=== PATIENT | male | born 1965 | race Caucasian/White ===

== ENCOUNTER 2020-03-01 07:27 | Outpatient (REF) | payer OTHER, SELFPAY ==
[2020-03-01 11:21] LABS: MANUAL DIFF FLAG NO
[2020-03-01 11:30] LABS: Basophils Percent Auto 0.3 % (0-2); Eosinophils Absolute Auto 0.2 X10*3/uL (0.0-0.4); Hematocrit 44.4 % (42-52); Imm Gran Abs Auto 0.02 X10*3/uL (0.00-0.03); Imm Gran Pct Auto 0.3 % (0.0-0.4); Lymphocytes Absolute Auto 2.2 X10*3/uL (1.2-4.9); Lymphocytes Percent Auto 27.8 % (20-40); Mean Corpuscular HGB Conc 31.5 g/dl (31.0-36.0); Mean Corpuscular Hemoglobin 28.3 pg (27.0-33.0); Mean Corpuscular Volume 89.9 fL (80-98); Mean Platelet Volume 10.2 fL (9.4-12.4); Monocytes Absolute Auto 0.6 X10*3/uL (0.1-1.2); Monocytes Percent Auto 8.1 % (2-11); Neutrophils Absolute Auto 4.8 X10*3/uL (2.0-8.3); Neutrophils Percent Auto 61.5 % (45-73); Platelet Count 220 X10*3/uL (160-400); Red Blood Count 4.94 X10*6/uL (4.60-5.80); Red Cell Distribution Width 13.4 % (11.0-16.0); White Blood Count 7.8 X10*3/uL (4.8-10.8)
[2020-03-01 11:33] LABS: Glucose Urine UA NEG (NEG); Leukocyte Esterase Urine 2+ (NEG); Nitrite Urine NEG (NEG); PH 6.5 (5.0-8.0); Urine Blood 2+ (NEG); Urine Ketones NEG (NEG); Urine Protein TRACE MG/DL (NEG-TRACE)
[2020-03-01 11:34] LABS: Appearance Urine CLOUDY; Color Urine YELLOW
[2020-03-01 11:57] LABS: Mucus Urine 1+ /LPF; Renal Epithelial Cells Urine 1+ /LPF; Squamous Epithelial Cell Urine 1+ /LPF; WBC Urine TNTC /HPF (0-4)
[2020-03-01 12:23] LABS: Alanine Aminotransferase 63 U/L (0-40); Albumin Level 4.5 g/dL (3.5-5.0); Alkaline Phosphatase 55 U/L (39-117); Anion Gap 14 (12-20); Aspartate Amino Transferase 33 U/L (5-37); Bilirubin Total 0.8 mg/dL (0.0-1.0); Blood Urea Nitrogen 20 mg/dL (9-16); Calcium 8.6 mg/dL (8.4-10.2); Carbon Dioxide 27 mmol/L (22-29); Chloride 103 mmol/L (96-108); Cholesterol 188 mg/dL; Estimated Glomerular Filt Rate 56; Glucose Fasting 113 mg/dL (60-99); HDL Cholesterol 53 mg/dL; LDL Cholesterol Calculated 116 mg/dl; Potassium 4.9 mmol/l (3.3-5.1); Sodium 139 mmol/L (135-145); Triglycerides 97 mg/dL
[2020-03-01 12:48] LABS: Prostate Specific Antigen 0.81 ng/mL (<0.05-4.0); Thyroid Stimulating Hormone 0.06 uIU/mL (0.32-4.0); Vitamin D 25-OH Total 21.8 ng/mL (>30)
== END 2020-03-01 07:28 | disposition home or self-care (01) ==
LOC: HO.HMGCLDS 07:27
PROVIDERS: PCP Internal Medicine; Visit Provider Internal Medicine
DX: I10 Essential (primary) hypertension (principal); N40.0 Benign prostatic hyperplasia without lower urinary tract symptoms; E03.8 Other specified hypothyroidism; E06.3 Autoimmune thyroiditis
CPT/HCPCS: 36415; 80053; 80061; 81001; 82306; 84153; 84443; 85025

== ENCOUNTER 2022-02-13 06:32 | Outpatient (REF) | payer BC, SELFPAY ==
[2022-02-13 11:22] LABS: MANUAL DIFF FLAG NO
[2022-02-13 11:25] LABS: Basophils Percent Auto 0.4 % (0-2); Eosinophils Absolute Auto 0.2 X10*3/uL (0.0-0.4); Eosinophils Percent Auto 4.3 % (0-4); Hematocrit 42.9 % (42.0-52.0); Hemoglobin 13.6 g/dl (14.0-18.0); Imm Gran Abs Auto 0.04 X10*3/uL (0.00-0.03); Imm Gran Pct Auto 0.7 % (0.0-0.4); Lymphocytes Absolute Auto 2.3 X10*3/uL (1.2-4.9); Lymphocytes Percent Auto 40.2 % (20-40); Mean Corpuscular HGB Conc 31.7 g/dl (31.0-36.0); Mean Corpuscular Hemoglobin 29.7 pg (27.0-33.0); Mean Corpuscular Volume 93.7 fL (80.0-98.0); Mean Platelet Volume 10.7 fL (9.4-12.4); Monocytes Absolute Auto 0.4 X10*3/uL (0.1-1.2); Monocytes Percent Auto 7.3 % (2-11); Neutrophils Absolute Auto 2.7 x10*3/uL (2.0-8.3); Neutrophils Percent Auto 47.1 % (45-73); Platelet Count 184 X10*3/uL (160-400); Red Blood Count 4.58 X10*6/uL (4.60-5.80); Red Cell Distribution Width 14.6 % (11.0-16.0); White Blood Count 5.6 X10*3/uL (4.8-10.8)
[2022-02-13 11:32] LABS: Appearance Urine Clear; Color Urine Yellow; Glucose Urine UA Negative (Negative); Leukocyte Esterase Urine Negative (Negative); Nitrite Urine Negative (Negative); PH 5.5 (5.0-9.0); Urine Blood Negative (Negative); Urine Ketones Negative (Negative); Urine Protein Negative (Neg-Trace)
[2022-02-13 11:35] LABS: Bacteria Urine None Seen (None Seen); Hyaline Casts Urine 0-2 /LPF (0-2); RBC Urine 0-2 /HPF (0-2); Squamous Epithelial Cell Urine 0-2 /HPF (0-2); WBC Urine 0-5 /HPF (0-5)
[2022-02-13 11:43] LABS: Anion Gap 15 (12-20); Blood Urea Nitrogen 21 mg/dL (9-16); Carbon Dioxide 27 mmol/L (22-29); Chloride 103 mmol/L (96-108); Cholesterol 267 mg/dL; Estimated Glomerular Filt Rate > 60; Glucose Fasting 119 mg/dL (60-99); HDL Cholesterol 58 mg/dL; LDL Cholesterol Calculated 174 mg/dl; Potassium 4.7 mmol/L (3.3-5.1); Sodium 140 mmol/L (135-145); Triglycerides 179 mg/dL
[2022-02-13 12:04] LABS: PSA,Total (Free>4and<10) 0.22 ng/mL (0.00-4.00); Thyroid Stimulating Hormone 17.22 uIU/mL (0.32-4.0); Vitamin D 25-OH Total 22.9 ng/mL (>30)
== END 2022-02-13 06:33 | disposition home or self-care (01) ==
LOC: HO.HMGCLDS 06:32
PROVIDERS: PCP Internal Medicine; Visit Provider Internal Medicine
DX: Z00.00 Encounter for general adult medical examination without abnormal findings (principal); Z12.5 Encounter for screening for malignant neoplasm of prostate; N40.0 Benign prostatic hyperplasia without lower urinary tract symptoms; E03.8 Other specified hypothyroidism; I10 Essential (primary) hypertension
CPT/HCPCS: 36415; 80048; 80061; 81001; 82306; 84153; 84443; 85025

== ENCOUNTER 2022-05-27 06:06 | Outpatient (REF) | payer BC, SELFPAY ==
[2022-05-27 11:28] LABS: MANUAL DIFF FLAG NO
[2022-05-27 11:31] LABS: Basophils Percent Auto 0.4 % (0-2); Eosinophils Absolute Auto 0.2 X10*3/uL (0.0-0.4); Eosinophils Percent Auto 2.7 % (0-4); Hematocrit 43.8 % (42.0-52.0); Hemoglobin 14.1 g/dl (14.0-18.0); Imm Gran Abs Auto 0.07 X10*3/uL (0.00-0.03); Imm Gran Pct Auto 0.9 % (0.0-0.4); Lymphocytes Absolute Auto 2.6 X10*3/uL (1.2-4.9); Lymphocytes Percent Auto 35.4 % (20-40); Mean Corpuscular HGB Conc 32.2 g/dl (31.0-36.0); Mean Corpuscular Hemoglobin 28.6 pg (27.0-33.0); Mean Corpuscular Volume 88.8 fL (80.0-98.0); Mean Platelet Volume 10.1 fL (9.4-12.4); Monocytes Absolute Auto 0.5 X10*3/uL (0.1-1.2); Monocytes Percent Auto 6.9 % (2-11); Neutrophils Percent Auto 53.7 % (45-73); Platelet Count 261 X10*3/uL (160-400); Red Blood Count 4.93 X10*6/uL (4.60-5.80); Red Cell Distribution Width 13.5 % (11.0-16.0); White Blood Count 7.4 X10*3/uL (4.8-10.8)
[2022-05-27 11:55] LABS: Alanine Aminotransferase 57 U/L (0-40); Albumin Level 4.3 g/dL (3.5-5.0); Alkaline Phosphatase 49 U/L (39-117); Anion Gap 14 (12-20); Aspartate Amino Transferase 33 U/L (5-37); Bilirubin Total 0.6 mg/dL (0.0-1.0); Blood Urea Nitrogen 21 mg/dL (9-16); Calcium 9.5 mg/dL (8.4-10.2); Carbon Dioxide 28 mmol/L (22-29); Chloride 102 mmol/L (96-108); Cholesterol 189 mg/dL; Estimated Glomerular Filt Rate > 60; Glucose Fasting 114 mg/dL (60-99); HDL Cholesterol 55 mg/dL; LDL Cholesterol Calculated 110 mg/dl; Potassium 4.8 mmol/L (3.3-5.1); Sodium 139 mmol/L (135-145); Total Protein 6.6 g/dL (6.5-8.0); Triglycerides 124 mg/dL
[2022-05-27 12:14] LABS: Thyroid Stimulating Hormone 0.51 uIU/mL (0.32-4.0)
== END 2022-05-27 06:07 | disposition home or self-care (01) ==
LOC: HO.HMGCLDS 06:06
PROVIDERS: PCP Internal Medicine; Visit Provider Internal Medicine
DX: I10 Essential (primary) hypertension (principal)
CPT/HCPCS: 36415; 80053; 80061; 84443; 85025

== ENCOUNTER 2022-12-29 06:58 | Outpatient (REF) | payer BC, SELFPAY ==
[2022-12-29 12:40] LABS: Alanine Aminotransferase 59 U/L (0-40); Albumin Level 4.3 g/dL (3.5-5.0); Alkaline Phosphatase 55 U/L (39-117); Anion Gap 9 (12-20); Aspartate Amino Transferase 35 U/L (5-37); Bilirubin Total 0.4 mg/dL (0.0-1.0); Blood Urea Nitrogen 19 mg/dL (9-16); Calcium 9.5 mg/dL (8.4-10.2); Carbon Dioxide 29 mmol/L (22-29); Chloride 104 mmol/L (96-108); Estimated Glomerular Filt Rate > 60; Glucose Fasting 109 mg/dL (60-99); Potassium 4.4 mmol/L (3.3-5.1); Sodium 138 mmol/L (135-145); Thyroid Stimulating Hormone 0.06 uIU/mL (0.32-4.0)
== END 2022-12-29 06:59 | disposition home or self-care (01) ==
LOC: HO.HMGCLDS 06:58
PROVIDERS: PCP Internal Medicine; Visit Provider Internal Medicine
DX: E03.8 Other specified hypothyroidism (principal); I10 Essential (primary) hypertension
CPT/HCPCS: 36415; 80053; 84443

== ENCOUNTER 2023-06-18 11:02 | Outpatient (AMB) | payer BC, SELFPAY ==
--- NOTE | 2023-06-18 12:36 | MHC.OFFWIV ---
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 He states that about 6 weeks ago, he had a cold, the symptoms which resolved after a week or so, however he has had persistent sinus/nasal congestion and pressure since then. Denies any cough or shortness of breath. Denies any fever or chills. Denies any GI symptoms. Has been using a nasal spray and Gudelia without significant benefit. [facility] Social History Patient Tobacco Use Status: Never used Tobacco Review of Systems Const All systems reviewed & are unremarkable except as noted in HPI and below Physical Exam Vital Signs: Last Vital Signs Temp 97.7 F 06/18/23 12:37 Pulse 81 06/18/23 12:37 BP 130/80 06/18/23 12:37 Pulse Ox 96 06/18/23 12:37 Oxygen Delivery Method Room Air 06/18/23 12:37 BMI result Body Mass Index 35.7 Const General: cooperative, healthy appearing, comfortable and no acute distress HEENT Head: Yes normal to inspection Ears: hearing grossly normal bilaterally General nose exam: Normal external nose present, Abnormal mucous membranes and turbinates present erythematous bilateral and Nasal discharge present mucoid Face and sinus: Yes sinus tenderness (frontal and maxillary) Mouth: Normal oral and palatal mucosa present Throat: Yes posterior oropharynx normal Neck Neck: Yes no lymphadenopathy Resp Effort & Inspection: normal respiratory effort Auscultation: clear to auscultation bilaterally Cardio Palpation: normal PMI Rate: regular rate Rhythm: regular rhythm Skin General skin exam: no rashes or lesions noted Extrem General: Yes capillary refill normal and Yes no clubbing, cyanosis or edema Psych Appearance: grossly normal Mental Status: mental status grossly normal Speech and movement: Normal speech and movement present Assessment & Plan Assessment & Plan (1) Acute sinusitis: Code(s): J01.90 - Acute sinusitis, unspecified Qualifiers: Sinusitis location: maxillary Recurrence: non-recurrent Qualified Code(s): J01.00 - Acute maxillary sinusitis, unspecified Plan: Will start on azithromycin for a one month history of sinusitis. We reviewed indications, use, possible side effects of medication. He may continue to utilize conservative measures with Gudelia and nasal spray as needed. If he does not improve with treatment, or if symptoms worsen/new symptoms develop, he can certainly return to the clinic for further evaluation. He verbalizes understanding and agrees to plan. Medications: New azithromycin For 250 mg dose pack: take 500 mg today (day 1), then 250 mg for 4 days (days 2-5) PO 6 tabs 0RF J01.90 - Acute sinusitis, unspecified Coding Level of Care Code Est Pt Level 3 (82926) Diagnoses Acute non-recurrent maxillary sinusitis J01.00 Sinusitis location: maxillary Recurrence: non-recurrent
[2023-06-18 12:37] VITALS: BP 130/80; PULSE 81; TEMP 36.5; O2SAT 96; BMI 35.7
== END 2023-06-18 13:33 | disposition home or self-care (01) ==
PROVIDERS: PCP Internal Medicine; Visit Provider Nurse Practitioner Family
DX: J01.00 Acute maxillary sinusitis, unspecified (principal)
CPT/HCPCS: 99213

== ENCOUNTER 2023-06-30 06:25 | Outpatient (REF) | payer BC, SELFPAY ==
[2023-06-30 12:34] LABS: Thyroid Stimulating Hormone 1.12 uIU/mL (0.32-4.0)
== END 2023-06-30 06:26 | disposition home or self-care (01) ==
LOC: HO.HMGCLDS 06:25
PROVIDERS: PCP Internal Medicine; Visit Provider Internal Medicine
DX: E03.8 Other specified hypothyroidism (principal)
CPT/HCPCS: 36415; 84443

== ENCOUNTER 2024-02-19 10:14 | Day surgery (SDC) | payer BC, SELFPAY ==
[2024-02-17 11:25] VITALS: BMI 35.4
--- NOTE | 2024-02-18 10:27 | HO.ANESPROP2 ---
Documented by User: Rose Irwin NP 02/18/24 10:28 HPI - Anesthesia Eval Consult details Narrative: 58yo M for Colonoscopy Lobectomy 2012 r/t ca Hx post-op PE, no OAC now [facility] Past Medical History Medical History Lung cancer Pulmonary embolus BPH (benign prostatic hyperplasia) Hypothyroid HTN (hypertension) Surgical History Surgical History History of total left knee replacement Hx of knee surgery History of lobectomy of lung H/O colonoscopy Social History Social History Patient Tobacco Use Status: Never used Tobacco Use of substances other than those prescribed or required for medical reasons: No Are you DNR?: No Advance Directives: No Advance Directives Information Provided: Yes Recently lost weight without trying: No Meds Allergies Allergy/AdvReac Type Severity Reaction Status Date / Time levofloxacin [From LEVAQUIN] Allergy Intermediate RASH,SWELLING Verified 02/19/24 10:20 TO HANDS AND FEET WITH JOINT PAIN Home Medications ?Medication ?Instructions ?Recorded ?Confirmed ?Last Taken ?Type levothyroxine 125 mcg tablet 125 mcg PO DAILY 02/17/24 02/19/24 Unknown History lisinopril 20 mg tablet 20 mg PO DAILY 02/17/24 02/19/24 Unknown History tamsulosin 0.4 mg capsule (Flomax) 0.4 mg PO DAILY 02/17/24 02/19/24 Unknown History Exam Height,Weight and Vital Signs: Height 5 ft 10.5 in Weight 113.398 kg Assessment and Plan Assessment Anesthesia Assessment: Chart Reviewed Documented by User: Charisse Brady MD 02/19/24 10:56 PMFSH Past Medical History Medical History Lung cancer Pulmonary embolus BPH (benign prostatic hyperplasia) Hypothyroid HTN (hypertension) Surgical History Surgical History History of total left knee replacement Hx of knee surgery History of lobectomy of lung H/O colonoscopy History of Problems with Anesthesia: No Social History Social History Patient Tobacco Use Status: Never used Tobacco Use of substances other than those prescribed or required for medical reasons: No Are you DNR?: No Advance Directives: No Advance Directives Information Provided: Yes Recently lost weight without trying: No Meds Allergies Allergy/AdvReac Type Severity Reaction Status Date / Time levofloxacin [From LEVAQUIN] Allergy Intermediate RASH,SWELLING Verified 02/19/24 10:20 TO HANDS AND FEET WITH JOINT PAIN Home Medications ?Medication ?Instructions ?Recorded ?Confirmed ?Last Taken ?Type levothyroxine 125 mcg tablet 125 mcg PO DAILY 02/17/24 02/19/24 Unknown History lisinopril 20 mg tablet 20 mg PO DAILY 02/17/24 02/19/24 Unknown History tamsulosin 0.4 mg capsule (Flomax) 0.4 mg PO DAILY 02/17/24 02/19/24 Unknown History Exam Airway Mallampati Class: III TM Dist: >3cm Neck ROM: Full Loose/Missing/Broken Teeth: No Heart: RRR Lungs: CTA Assessment and Plan Assessment Anesthesia Assessment: Anesthesia Plan Discussed Final Anesthetic Review History of Problems with Anesthesia: No NPO: Yes ASA Class: II Final Preanesthetic Review: Meds/Allgs Chart Reviewed, Consent Obtained/Reviewed and Anes Risks/Benef Reviewed Patient Risk: Low Procedure Risk: Low Anesthetic Plan Anesthetic Plan: MAC: Disposition: Standard PACU
[2024-02-19 10:20] VITALS: BMI 33.8
[2024-02-19 10:25] VITALS: BP 139/84; PULSE 72; RESP 15; TEMP 36.3; O2SAT 95
[2024-02-19] MEDS: Lactated Ringers 1,000 ML 100 ML IVCONT (10:39)
--- NOTE | 2024-02-19 11:11 | MHC.SHP ---
Pre-Procedural Eval Section A - 24 Hr Update-Section A only Date of Service: 02/19/24 The patient is an INPATIENT: No Changes since office visit: No Cold of Flu in the past 2 weeks, No New Medical Problems, No Changes in Medication and No Patient answered all questions The patient has been examined within 24 hours of the surgical procedure. The History & Physical has been completed within 30 days and I have reviewed it.: Yes Section B - Complete if H&P > 30 days Chief Complaint: screening Allergies: Allergies Allergy/AdvReac Type Severity Reaction Status Date / Time levofloxacin [From LEVAQUIN] Allergy Intermediate RASH,SWELLING Verified 02/19/24 10:20 TO HANDS AND FEET WITH JOINT PAIN Plan I have reviewed the history and physical and performed a pertinent physical examination on my patient. No changes have occurred unless specified. Time Spent With Patient Time: Total time managing care of this patient today ____ minutes.
[2024-02-19 11:45] VITALS: BP 83/44; PULSE 71; RESP 16; TEMP 36.1; O2SAT 95
[2024-02-19 12:00] VITALS: BP 114/57; PULSE 70; RESP 16; TEMP 36.1; O2SAT 96
--- NOTE | 2024-02-19 22:38 | OP_ITS ---
DATE OF SERVICE: 02/19/2024 SURGEON: Ra Rosales MD INDICATIONS: Colon cancer screening and prior history of adenomatous colon polyps. PREOPERATIVE DIAGNOSIS: POSTOPERATIVE DIAGNOSIS: PROCEDURE PERFORMED: Colonoscopy to the terminal ileum. ESTIMATED BLOOD LOSS: COMPLICATIONS: ANESTHESIA: Medications, monitored anesthesia care. ASSISTANTS: SPECIMENS: DESCRIPTION OF PROCEDURE: History and physical was performed. The risks and benefits of the procedure were explained to the patient. Informed consent was obtained. The patient was placed in the left lateral decubitus position. A digital rectal exam was performed and was found to be normal. The Olympus pediatric video colonoscope was introduced into the rectum and advanced to the cecum. The cecum was identified by transillumination, palpation, and identification of the ileocecal valve. Examination was performed. The scope was removed. He tolerated the procedure well and was turned recovery area in stable condition. FINDINGS: The terminal ileum was examined and appeared normal. The visualized colonic mucosa was normal. The quality of the prep was good. No polyps were identified. Retroflexed examination showed some small internal hemorrhoids. IMPRESSION: Normal colonoscopy. RECOMMENDATIONS: 1. Follow up as needed. 2. Repeat colonoscopy is recommended in 10 years for average-risk individuals. MD CESAR Robins/DARIA / [phone]
== END 2024-02-19 12:30 | disposition home or self-care (01) ==
PROVIDERS: PCP Internal Medicine; Visit Provider Internal Medicine Gastroenterology
PROC: 0DJD8ZZ Inspection of Lower Intestinal Tract, Via Natural or Artificial Opening Endoscopic (ICD-10-PCS; CPT 45378; principal; 2024-02-19 11:30)
DX: Z12.11 Encounter for screening for malignant neoplasm of colon (principal); Z86.0101 Personal history of adenomatous and serrated colon polyps; K64.8 Other hemorrhoids; I10 Essential (primary) hypertension; E03.9 Hypothyroidism, unspecified; N40.0 Benign prostatic hyperplasia without lower urinary tract symptoms; I26.99 Other pulmonary embolism without acute cor pulmonale; Z85.110 Personal history of malignant carcinoid tumor of bronchus and lung; Z90.2 Acquired absence of lung [part of]; Z96.652 Presence of left artificial knee joint; Z79.899 Other long term (current) drug therapy; Z88.1 Allergy status to other antibiotic agents
CPT/HCPCS: 45378; J2003; J2704

== ENCOUNTER 2024-03-09 06:24 | Outpatient (REF) | payer BC, SELFPAY ==
[2024-03-09 10:09] LABS: MANUAL DIFF FLAG NO
[2024-03-09 10:16] LABS: Basophils Percent Auto 0.5 % (0-2); Eosinophils Absolute Auto 0.2 X10*3/uL (0.0-0.4); Eosinophils Percent Auto 3.3 % (0-4); Hematocrit 44.8 % (42.0-52.0); Hemoglobin 14.4 g/dl (14.0-18.0); Imm Gran Abs Auto 0.02 X10*3/uL (0.00-0.03); Imm Gran Pct Auto 0.3 % (0.0-0.4); Lymphocytes Absolute Auto 2.3 X10*3/uL (1.2-4.9); Lymphocytes Percent Auto 37.9 % (20-40); Mean Corpuscular HGB Conc 32.1 g/dl (31.0-36.0); Mean Corpuscular Hemoglobin 28.9 pg (27.0-33.0); Mean Platelet Volume 10.4 fL (9.4-12.4); Monocytes Absolute Auto 0.5 X10*3/uL (0.1-1.2); Monocytes Percent Auto 7.7 % (2-11); Neutrophils Percent Auto 50.3 % (45-73); Platelet Count 214 X10*3/uL (160-400); Red Blood Count 4.98 X10*6/uL (4.60-5.80); Red Cell Distribution Width 13.6 % (11.0-16.0)
[2024-03-09 10:21] LABS: Alanine Aminotransferase 60 U/L (0-40); Albumin Level 4.2 g/dL (3.5-5.0); Anion Gap 11 (12-20); Aspartate Amino Transferase 44 U/L (5-37); Bilirubin Total 0.6 mg/dL (0.0-1.0); Blood Urea Nitrogen 19 mg/dL (9-16); Carbon Dioxide 27 mmol/L (22-29); Chloride 105 mmol/L (96-108); Cholesterol 175 mg/dL (<200); Estimated Glomerular Filt Rate > 60; Glucose Fasting 108 mg/dL (60-99); HDL Cholesterol 54 mg/dL (>40); LDL Cholesterol Calculated 100 mg/dL (<100); Potassium 4.3 mmol/L (3.3-5.1); Sodium 139 mmol/L (135-145); Total Protein 6.7 g/dL (6.5-8.0); Triglycerides 108 mg/dL (<150)
[2024-03-09 10:48] LABS: Thyroid Stimulating Hormone 0.46 uIU/mL (0.32-4.0); Vitamin D 25-OH Total 54.2 ng/mL (>30)
[2024-03-09 10:58] LABS: Alkaline Phosphatase 47 U/L (39-117)
== END 2024-03-09 06:25 | disposition home or self-care (01) ==
LOC: HO.HMGCLDS 06:24
PROVIDERS: PCP Internal Medicine; Visit Provider Internal Medicine
DX: I10 Essential (primary) hypertension (principal); E03.8 Other specified hypothyroidism; N40.0 Benign prostatic hyperplasia without lower urinary tract symptoms; E66.09 Other obesity due to excess calories
CPT/HCPCS: 36415; 80053; 80061; 82306; 84443; 85025

== ENCOUNTER 2024-12-14 14:17 | Outpatient (AMB) | payer BC, SELFPAY ==
--- NOTE | 2024-12-14 14:29 | A.OFFPC_ITS ---
Vital Signs 12/14/24 14:43 Height 5 ft 11.06 in Weight 237 lb BMI 33.0 BP 128/65 Blood Pressure Location Lt brachial Position Sitting Respiration 16 Pulse 50 Pulse Source Pulse Oximeter Temp 97.5 F Temp Source Temporal Artery Scan Pulse Oximetry (%) 96 Oxygen Delivery Method Room Air Intake Visit Reasons: 6 month follow up Manager Of Case Required: No Accompanied by: Self / Same As Patient Allergies levofloxacin (From LEVAQUIN) Allergy (Intermediate, Verified 12/14/24 14:51) RASH,SWELLING TO HANDS AND FEET WITH JOINT PAIN Medication List - Last Reconciled 12/14/24 by Hazel Jason PA-C levothyroxine 150 mcg PO DAILY lisinopril 10 mg PO DAILY tamsulosin (Flomax) 0.4 mg PO DAILY Tobacco use date assessed: 12/14/24 Dental Screening Dental Screen Date: 12/14/24 Did you have a dental visit in the last 12 months?: No Did you have a dental problem in the last 6 months where you did not have access to dental care?: No Was dental information given to patient?: Patient has dentist HPI 6 month follow up HPI Details The patient is a 59-year-old male presenting for a annual physical exam and to establish a new primary care provider as his prior provider Dr. Henson retired. The patient has a history of hypothyroidism, managed with levothyroxine, althou gh he admits to inconsistent medication adherence, which previously led to abnormal thyroid levels that normalized with regular medication use. He is also on lisinopril for hypertension, which is currently well-controlled, and takes tamsulosin for benign prostatic hyperplasia. The patient has a history of lung cancer, which required surgical removal of the lower left lung lobe. He reports no current respiratory issues, although he humorously notes the absence of lung sounds in the removed area. The patient was informed of a prediabetic state with an A1c level of 5.7%, and was provided with guidance on lifestyle modifications to manage glucose levels. Preventative care measures include a colonoscopy performed last year, with a follow-up scheduled in 10 years, and regular dental visits approximately once a year. 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 - Vision: Wears glasses for distance. - Dental Care: Visits dentist reema card once a year. [facility] Medical History (Updated 12/14/24 @ 15:42 by Hazel Jason PA-C) Prediabetes Annual physical exam Lung cancer Pulmonary embolus BPH (benign prostatic hyperplasia) Hypothyroid HTN (hypertension) Surgical History History of total left knee replacement Hx of knee surgery History of lobectomy of lung H/O colonoscopy (~02/15/24) Family History Father Diabetes Mother History of stroke Social History Housing: House Alcohol intake: current Alcohol intake frequency: holidays/special occasions only Patient Tobacco Use Status: Never used Tobacco service: No Current occupational status: employed Cognitive needs: No Hearing needs: No Vision needs: Yes (rx glasses) Questionnaire PHQ-9 Over the last 2 weeks, how often have you been bothered by any of the following problems? 1. Little interest or pleasure in doing things: not at all 2. Feeling down, depressed, or hopeless: not at all 3. Trouble falling or staying asleep, or sleeping too much: not at all 4. Feeling tired or having little energy: not at all 5. Poor appetite or overeating: not at all 6. Feeling bad about yourself - or that you are a failure or have let yourself or your family down: not at all 7. Trouble concentrating on things, such as reading the newspaper or watching television: not at all 8. Moving or speaking so slowly that other people could have noticed. Or the opposite - being so fidgety or restless that you have been moving around a lot more than usual: not at all 9. Thoughts that you would be better off or of hurting yourself in some way: not at all Total score: 0 Depression Screening Interpretation: Negative Depression Screening Done: Yes 90089 - PHQ-9 Billing: Yes Source: Developed by Drs. Adalberto Weiner, Mary Caballero, Connor John and colleagues, with an educational ora from [employer]. AUDIT C Alcohol Use Questionnaire (AUDIT-C) 1. How often do you have a drink containing alcohol?: Monthly or less 2. How many drinks containing alcohol do you have on a typical day when you are drinking?: 1 or 2 Total Score: 1 Score Reviewed/Action Taken: No ROSY-7 AMB Questionnaire ROSY-7 Date ROSY - 7 assessed: 12/14/24 Feeling nervous, anxious, or on edge: 0 = Not at all Not being able to stop or control worryin = Not at all Worrying too much about different things: 0 = Not at all Trouble relaxin = Not at all Being so restless that it is hard to sit still: 0 = Not at all Becoming easily annoyed or irritable: 0 = Not at all Feeling afraid as if something awful might happen: 0 = Not at all Total ROSY-7 score (0-4 normal; 5-9 mild; 10-14 moderate; 15-21 severe): 0 Source: Developed by Drs. Adalberto Weiner, Mary Caballero, Connor John and colleagues, with an educational ora from [employer]. ROSY-7 Assessment Billing ROSY-7 Assessment Tool: ROSY-7 Assessment 60960 Review of Systems Const Details: - Cardiovascular: Denies chest pain or palpitations. - Respiratory: Denies dyspnea or cough, reports previous lung surgery. - Neurological: Denies hearing loss, reports using glasses for distance vision. - Endocrine: Reports inconsistent use of levothyroxine for hypothyroidism. All systems reviewed & are unremarkable except as noted in HPI and below Physical exam (Primary Care) Vital Signs: Last Vital Signs Temp 97.5 F 12/14/24 14:43 Pulse 50 12/14/24 14:43 Resp 16 12/14/24 14:43 BP 128/65 12/14/24 14:43 Pulse Ox 96 12/14/24 14:43 Oxygen Delivery Method Room Air 12/14/24 14:43 Care Plan Goal for BP management: <140/90 at Goal BMI result Body Mass Index 33.0 BMI Assessment/Plan discussion: High BMI High, discussed plan: lifestyle, weight reduction, dietary, physical activity, alcohol moderation and other Tobacco/Smoking Status: Tobacco use Status Tobacco use date assessed 12/14/24 12/14/24 14:46 Patient Tobacco Use Status Never used Tobacco 12/14/24 14:43 PHQ-9: PHQ-9 Score PHQ-9: Total score 0 12/14/24 14:52 Depression Screening Interpretation: Negative Const Other: Appearance: Alert. Oriented X3. No acute distress. Head: Normal external exam. Normocephalic. Atraumatic. Eyes: Pupils are equal, round, and reactive to light. Extraocular movements intact. Conjunctiva and sclera normal. Eyelids normal. Glasses for distance. Ears: External auditory canal normal. Tympanic membranes normal. No trouble hearing. Throat: Pharynx normal. Uvula midline. Moist mucous membranes. No issues noted. Neck: Normal inspection. Neck supple. Full range of motion. No adenopathy. Thyroid Normal. No meningeal signs. No neck mass noted. Cardiovascular: Normal heart rate and rhythm. Heart sound normal. No murmurs noted. Pulses normal throughout. Respiratory: No respiratory distress. Painless inspiration. Breath sounds normal. No wheezes/rales/rhonchi noted. No accessory muscle usage noted or dec reased air movement noted. Patient had bottom left part of lung removed. Abdomen: Soft and nontender. No distention noted. No organomegaly noted. Back: No costovertebral angle tenderness. Full range of motion noted. Skin: Skin warm and dry. Normal skin color. Normal skin turgor. No rashes/lesions/lacerations noted. Varicose veins present but not affecting the patient. No swelling or hemostaining. Extremities: No lower extremity edema. Extremities exhibit normal range of motion. Extremities nontender. Neuro: Oriented X 3. No motor deficit. No sensory deficit. Reflexes normal. Results AMB Hemoglobin A1c AMB Hemoglobin A1c 5.7 % Last Edit by MICHAEL Ardno on 12/14/24 15:16 Results Reviewed Results Reviewed: - Labs: Hemoglobin A1c level of 5.7%, indicating prediabetes. Coding Level of Care Code New Pt Level 4 (45706) New Pt Prev Care 40-64y(26374) Diagnoses Annual physical exam Z00.00 Hypothyroid E03.9 HTN (hypertension) I10 BPH (benign prostatic hyperplasia) N40.0 Lung cancer C34.90 Prediabetes R73.03 Additional Codes PHQ-9 - 20522 - PHQ-9 Billing: Yes ([id number]) ROSY-7 Assessment Billing - ROSY-7 Assessment Tool: ROSY-7 Assessment 60200 ([id number]) Assessment & Plan Assessment & Plan (1) Annual physical exam: Code(s): Z00.00 - Encounter for general adult medical examination without abnormal findings Category: Medical (2) Hypothyroid: Code(s): E03.9 - Hypothyroidism, unspecified Category: Medical Plan: The patient is advised to adhere to levothyroxine therapy consistently to maintain normal thyroid function. (3) HTN (hypertension): Code(s): I10 - Essential (primary) hypertension Category: Medical Plan: Continue lisinopril 10 mg daily as blood pressure is well-controlled. (4) BPH (benign prostatic hyperplasia): Code(s): N40.0 - Benign prostatic hyperplasia without lower urinary tract symptoms Category: Medical Plan: Continue tamsulosin as prescribed for management of symptoms. (5) Lung cancer: Comment: History of partial lobectomy left lung Code(s): C34.90 - Malignant neoplasm of unspecified part of unspecified bronchus or lung Category: Medical Plan: History of partial lobectomy. No current intervention required as there are no respiratory issues reported. (6) Prediabetes: Code(s): R73.03 - Prediabetes Category: Medical Plan: Patient advised on lifestyle modifications to manage glucose levels and prevent progression to diabetes. Plan Plan Patient was informed and verbally consented to the use of an ambient scribe for clinic note documentation during this visit. 1. Hypothyroidism The patient is advised to adhere to levothyroxine therapy consistently to maintain normal thyroid function. 2. Hypertension Continue lisinopril 10 mg daily as blood pressure is well-controlled. 3. Benign Prostatic Hyperplasia Continue tamsulosin as prescribed for management of symptoms. 4. History Of Lung Cancer History of partial lobectomy. No current intervention required as there are no respiratory issues reported. 5. Prediabetes Patient advised on lifestyle modifications to manage glucose levels and prevent progression to diabetes. During the visit, I discussed the importance of medication adherence for hypothyroidism and the management of prediabetes through lifestyle changes. We reviewed the patient's current medications, including lisinopril and tamsulosin, and confirmed that no changes were necessary at this time. I also emphasized the need for regular follow-up visits and the importance of preventative care, including the scheduled colonoscopy follow-up. Orders: Orders AMB Hemoglobin A1c Today Z13.9 - Encounter for screening, unspecified Patient Instructions: - Take levothyroxine as prescribed to maintain thyroid health. - Continue lisinopril and tamsulosin as directed. - Follow lifestyle modifications to manage blood sugar levels. - Schedule and attend regular follow-up appointments. - Complete fasting blood work as discussed.
[2024-12-14 14:43] VITALS: BP 128/65; PULSE 50; RESP 16; TEMP 36.4; O2SAT 96; BMI 33.0
== END 2024-12-14 15:24 | disposition home or self-care (01) ==
PROVIDERS: PCP Physician Assistant Medical; Visit Provider Physician Assistant Medical
DX: Z00.00 Encounter for general adult medical examination without abnormal findings (principal); E03.9 Hypothyroidism, unspecified; I10 Essential (primary) hypertension; C34.90 Malignant neoplasm of unspecified part of unspecified bronchus or lung; N40.0 Benign prostatic hyperplasia without lower urinary tract symptoms; R73.03 Prediabetes

== ENCOUNTER → 2024-12-14 14:17 | Outpatient (BNVA) | payer BC, SELFPAY | PROVIDERS: PCP Physician Assistant Medical; Visit Provider Physician Assistant Medical | DX: Z00.00 Encounter for general adult medical examination without abnormal findings (principal); E03.9 Hypothyroidism, unspecified; I10 Essential (primary) hypertension; R73.03 Prediabetes; N40.0 Benign prostatic hyperplasia without lower urinary tract symptoms; Z90.2 Acquired absence of lung [part of]; Z85.118 Personal history of other malignant neoplasm of bronchus and lung; Z79.899 Other long term (current) drug therapy | CPT/HCPCS: 83036; 96127 ==

== ENCOUNTER 2024-12-16 06:33 | Outpatient (REF) | payer BC, SELFPAY ==
--- OUTSIDE RECORDS SUMMARY | 2023-10-22 11:55 | XMS_ITS ---
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 Name Role Phone Natividad (RETIRED) Adalberto FERRER Primary Care Provid er Unavailable Ra Rosales Jr [phone] REASON FOR VISIT Patient presents today for a screening colonoscopy Encounters Encounter Location Date Provider Diagnosis [facility] [address] [place] [id number] 10/22/2023 Ra Rosales Jr Plan Of Treatment No Information Progress Notes * RENZO LIMDOB: 4 (59 yo M)Acc No.[id number]:10/22/2023 Progress Notes Patient: RENZO WITT Provider: Bigg Rosales MD :1965 A ge:58 Y S ex:Male Date:10/22/2023 Address:[address], [id number] Pcp:Adalberto Henson (RETIRE D)DO Subjective: * Chief Complaints: * 1 . Patient presents today for a screening colonoscopy. * Medical History: Objective: * Vitals: Assessment: Plan: * Treatment: * * The named appointment provid er may or may not be the originator of this progress note, and it is not deemed complete until electronically signed by the appointment provider. Sign off status: Pending * Provider: Bigg Rosales MD Date: 10/22/2023 Generated for Aba brush/Marion/eTransmitting on: 0 12/16/2024 06:34 AM EDT
--- OUTSIDE RECORDS SUMMARY | 2024-02-19 07:30 | XMS_ITS ---
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 Name Role Phone Natividad (RETIRED) Adalberto FERRER Primary Care Provid er Unavailable Ra Rosales Jr REASON FOR VISIT screening Encounters Encounter Location Date Provider Diagnosis [facility] Outpatient [address] [place] [phone] 02/19/2024 Ra Rosales Jr Colon cancer screening Z12.11 and Personal history of colonic polyps Z86.0100 Assessments Encounter Date Diagnosis (ICD Code) Assessment Notes Treatment Notes Treatment Clinical Notes Section Notes 02/19/2024 Colon cancer screening (ICD-10 - Z12.11) 02/19/2024 Personal history of colonic polyps (ICD-10 - Z86.0100) Plan Of Treatment No Information Progress Notes * RENZO LIMDOB: 4 (59 yo M)Acc No.[id number]:02/19/2024 COLON WITH MAC Patient: RENZO WITT Provider: Bigg Rosales MD :1965 A ge:58 Y S ex:Male Date:02/19/2024 Address:[address], [place] Pcp:Adalberto Henson (RETIRE D)DO Subjective: * Chief Complaints: * 1 . Screening. * Medical History: Objective: * Vitals: Assessment: * Assessment: 1. C olon cancer screening - Z12.11 (Primary) 2 . P ersonal history of colonic polyps - Z86.0100 Plan: * Treatment: * Procedure Codes: 4 5378 DIAGNOSTIC COLONOSCOPY * * The named appointment provid er may or may not be the originator of this progress note, and it is not deemed complete until electronically signed by the appointment provider. Sign off status: Pending * Provider: Bigg Rosales MD Date: 1 04/20/2023 Generated for Aba brush/Marion/Estheritting on: 0 12/16/2024 06:34 AM EDT
--- OUTSIDE RECORDS SUMMARY | 2024-12-16 06:35 | XMS_ITS | Patient Health Record ---
Author Organization [facility] Address [address] [place] [address] Care Team Providers Care [employer] Systems Adminstrator Name Role Phone Natividad (RETIRED) Adalberto FERRER Primary Care Provid er Unavailable Ra Rosales Jr Unavailable Allergies Allergen (clinical drug ingredient) Drug/Non Drug Allergy documented on EMR Reaction Allergy Type Onset Date Status Levaquin Unknown Drug Allergy Active Reason For Referral No Information Medications Medication SIG (Take, Route, Frequency, Duration) Notes Start Date End Date Status Levothyroxine Sodium 125 MCG 1 tablet on an empty stomach in the morning Orally Once a day for 30 day(s) Active Flomax 0.4 MG 1 capsule 30 minutes after the same meal each day Orally Once a day Active MiraLax (colon prep) 17 GM/SCOOP mixed with Gatorade or Crystal Light Orally begin at 5:00 p.m. the day before the procedure for 1 day 01/21/2024 Active Lisinopril 20 MG 1 tablet Orally Once a day Active Immunizations Vaccine Route Administration Date Status Comme nts Influenza Unknown 01/19/2018 Administered Problems Problem Type SNOMED Code ICD Code Onset Dates Problem Status W/U Status Risk Notes Problem 993994077 Colon cancer screening (Z12.11) Active confirmed Problem 417815904 Encounter for other preprocedural examination (Z01.818) Active confirmed Problem [id number] Preoperative examination (Z01.818) Active confirmed Vital Signs Blood pressure diastolic 00 mm Hg 01/21/2024 Height 70.5 in 01/21/2024 Blood pressure systolic 00 mm Hg 01/21/2024 Weight 250 lbs 01/21/2024 BMI 35.36 kg/m2 01/21/2024 Encounters Encounter Location Date Provider Diagnosis [facility] [address] [place], [place] [id number] 02/19/2024 Ra Rosales Jr Colon cancer screening Z12.11 and Personal history of colonic polyps Z86.0100 [facility] [address] [place] [address] 01/21/2024 Ra Rosales Jr Colon cancer screening Z12.11 and Encounter for other preprocedural examination Z01.818 Assessments Encounter Date Diagnosis (ICD Code) Assessment Notes Treatment Notes Treatment Clinical Notes Section Notes 02/19/2024 Colon cancer screening (ICD-10 - Z12.11) 02/19/2024 Personal history of colonic polyps (ICD-10 - Z86.0100) 01/21/2024 Colon cancer screening (ICD-10 - Z12.11) We discussed colonoscopy today. We discussed risks benefits of the procedure today. He understands these and agrees to proceed. This will be scheduled at his convenience. 01/21/2024 Encounter for other preprocedural examination (ICD-10 - Z01.818) We discussed colonoscopy today. We discussed risks benefits of the procedure today. He understands these and agrees to proceed. This will be scheduled at his convenience. Plan Of Treatment Future Test Test Name Order Date COLONOSCOPY 05/23/2015 COLONOSCOPY 12/15/2018 COLONOSCOPY 01/21/2024 Insurance Providers Payer Name Payer Address Payer Phone Subscriber Number Group Number Insured Name Patient Relationship to Insured Coverage Start Date Coverage End Date [facility] [address] [place], [place] [id number] RENZO LIM Self - patient is the insured Medical (General) History Medical History History ICD Code Hypertension BPH Hypothyroidism Pulmonary embolus Colonoscopy, 2019, normal, five-year fol lowup for history of prior adenomas Surgical History Surgery Date(Month/Year) left lower lobectomy for carcinoid 2013 knee surgery [id number] left knee replacement 02/16/2023
[2024-12-16 10:34] LABS: MANUAL DIFF FLAG NO
[2024-12-16 10:52] LABS: Hematocrit 45.5 % (42.0-52.0); Hemoglobin 15.0 g/dl (14.0-18.0); Imm Gran Abs Auto 0.02 X10*3/uL (0.00-0.03); Imm Gran Pct Auto 0.4 % (0.0-0.4); Lymphocytes Absolute Auto 1.9 X10*3/uL (1.2-4.9); Mean Corpuscular HGB Conc 33.0 g/dl (31.0-36.0); Mean Corpuscular Hemoglobin 29.9 pg (27.0-33.0); Mean Corpuscular Volume 90.6 fL (80.0-98.0); NRBC Abs Auto 0.000 X10*3/uL (0.0-0.012); NRBC Pct Auto 0.0 /100WBC (0.0-0.2); Platelet Count 214 X10*3/uL (160-400); Red Blood Count 5.02 X10*6/uL (4.60-5.80); White Blood Count 5.4 X10*3/uL (4.8-10.8)
[2024-12-16 10:58] LABS: Hemoglobin A1C 153.4009 umol/L; Total Hemoglobin (HGBA1C) 3866.6462 umol/L
[2024-12-16 11:12] LABS: Alanine Aminotransferase 26 U/L (0-40); Albumin Level 4.5 g/dL (3.5-5.0); Alkaline Phosphatase 49 U/L (39-117); Anion Gap 13 (12-20); Aspartate Amino Transferase 28 U/L (5-37); Blood Urea Nitrogen 26 mg/dL (9-16); Calcium 9.3 mg/dL (8.4-10.2); Carbon Dioxide 28 mmol/L (22-29); Chloride 104 mmol/L (96-108); Cholesterol 215 mg/dL (<200); Estimated Glomerular Filt Rate > 60; HDL Cholesterol 57 mg/dL (>40); Magnesium 2.0 mg/dL (1.6-2.6); Potassium 4.7 mmol/L (3.3-5.1); Sodium 140 mmol/L (135-145); Total Protein 7.0 g/dL (6.5-8.0); Triglycerides 124 mg/dL (<150)
[2024-12-16 11:40] LABS: Folate 8.2 ng/mL (> or = 4.0); Vitamin B12 272 pg/mL (200-900)
[2024-12-16 11:41] LABS: PSA,Total (Free>4and<10) 0.40 ng/mL (0.00-4.00)
== END 2024-12-16 06:34 | disposition home or self-care (01) ==
LOC: HO.HMGCLDS 06:33
PROVIDERS: PCP Internal Medicine; Visit Provider Physician Assistant Medical
DX: Z00.00 Encounter for general adult medical examination without abnormal findings (principal); Z13.6 Encounter for screening for cardiovascular disorders; Z12.5 Encounter for screening for malignant neoplasm of prostate; Z13.1 Encounter for screening for diabetes mellitus; Z13.29 Encounter for screening for other suspected endocrine disorder; Z13.21 Encounter for screening for nutritional disorder
CPT/HCPCS: 36415; 80053; 80061; 80076; 82248; 82306; 82607; 82746; 83036; 83735; 84153; 84443; 85025; 86140